=== PATIENT | female | born 1955 | race African-American/Black ===

== ENCOUNTER 2019-09-08 09:07 | Emergency (ER) | payer MEDICAID ==
[~2019-09-08] VITALS: Ht 162.6 cm; Wt 57.0 kg
[2019-09-08 09:16] VITALS: BP 169/104
[2019-09-08] MEDS ORDERED: DIPHENHYDRAMINE 25MG CAPSULE PO ONE (10:00)
== END 2019-09-08 19:10 | disposition home or self-care (01) ==
LOC: ER 11:41
DX: S00.261A Insect bite (nonvenomous) of right eyelid and periocular area, initial encounter (principal); S60.562A Insect bite (nonvenomous) of left hand, initial encounter; S70.362A Insect bite (nonvenomous), left thigh, initial encounter; L03.90 Cellulitis, unspecified; W57.XXXA Bitten or stung by nonvenomous insect and other nonvenomous arthropods, initial encounter; Y93.89 Activity, other specified; Y92.89 Other specified places as the place of occurrence of the external cause
CPT/HCPCS: 99281

== ENCOUNTER 2024-10-03 09:43 | Emergency (ER) | payer MEDICAID ==
[~2024-10-03] VITALS: Ht 167.6 cm; Wt 59.0 kg
[2024-10-03 09:44] VITALS: PULSE 93; RESP 14; O2SAT 98
[2024-10-03 09:56] VITALS: BP 184/107; TEMP 36.7; O2SAT 98
[2024-10-03 11:10] LABS: BASOPHILS % 1.1 % (0.0-2.0); DIFFERENTIAL COMMENT 0; EOSINOPHILS % 1.5 % (0.0-5.0); HEMATOCRIT. 43.2 % (36.0-48.0); HEMOGLOBIN. 13.5 g/dL (12.0-16.0); LYMPHOCYTES % 43.2 % (20.0-50.0); MEAN CORPUSCULAR HEMOGLOBIN 23.1 pg (28.0-32.0); MEAN CORPUSCULAR HGB CONC 31.3 g/dL (31.0-37.0); MEAN CORPUSCULAR VOLUME 73.9 fL (81.0-99.0); MONOCYTES % 8.3 % (2.0-8.0); NEUTROPHILS % 45.9 % (40.0-76.0); PLATELET 294 x1000/uL (130-400); RED BLOOD CELL COUNT 5.85 mill/uL (4.2-5.4); RED CELL DISTRIBUTION WIDTH 15.4 % (11.6-14.6); WHITE BLOOD COUNT 10.2 x1000/uL (4.5-11.0)
[2024-10-03 11:16] LABS: CHLORIDE 102 mEq/L (98-107); POTASSIUM 3.3 mEq/L (3.5-5.1); SODIUM 140 mEq/L (136-145)
[2024-10-03 11:17] LABS: CALCIUM 9.5 mg/dL (8.7-10.4); CARBON DIOXIDE 26 mEq/L (21-32)
[2024-10-03 11:22] LABS: CREATININE 0.8 mg/dL (0.6-1.0); GLUCOSE 109 mg/dL (70-105); UREA NITROGEN BLOOD 14 mg/dL (9-23)
[2024-10-03 11:38] LABS: INR 1.1; PROTHROMBIN TIME 12.2 sec (9.6-11.0)
[2024-10-03] MEDS ORDERED: AMOX250S70 MT (12:32)
== END 2024-10-03 12:55 | disposition home or self-care (01) ==
LOC: ER 09:43
DX: J11.1 Influenza due to unidentified influenza virus with other respiratory manifestations (principal)
CPT/HCPCS: 36415; 71045; 80048; 85025; 87070; 87430; 99284